=== PATIENT | female | born 1980 | race Caucasian/White ===

== ENCOUNTER 2023-10-20 11:09 | Emergency (ER) | payer OTHER, SELFPAY ==
[2023-10-20 11:15] VITALS: BP 116/75
[2023-10-20 12:04] VITALS: BMI 18.5
--- NOTE | 2023-10-20 13:06 | ED.GENMED ---
History of Present Illness
General
Chief Complaint: Skin Problem
Source: patient
Exam Limitations: none
Time Seen by Provider: 10/20/23 12:09
Nursing documentation reviewed up to this point in time: agreed with
Travel History
Have you had any contact with someone who has COVID-19?: No
Do you have any symptoms of coronavirus? Fever > 100 degrees, chills, cough, shortness of breath, sore throat, loss of taste or smell, muscle aches, or headache?: No
History of Present Illness
History of Present Illness:
Patient is a 41-year-old female who presents to the ER for evaluation. She initially started with abdominal pain October 10 in her left lower quadrant region. At that time she also started vaginal bleeding which was 9 days earlier then her
menses.
She then noticed a rash to her left leg October 12 She was seen by her primary care physician on October 15 and diagnosed with shingles. She was started on Valtrex and gabapentin. For evaluation of abdominal pain her family doctor did order a
pelvic ultrasound however she did not get it yet.
She reports the rash has been getting better and the pain has been getting better however today she noticed bruising to her left thigh.
She has still has had the left lower quad abd pain that is dull but persistent. She denies urinary frequency urgency or dysuria. She does have some left lower back pain with this as well. She denies any fever or chills.
Review of Systems
Review of Systems
Allergies reviewed?: Yes
All Other Systems: ROS reviewed and negative except as documented in HPI and ROS
Constitutional: Reports no symptoms; Denies fever, fatigue or chills
Respiratory: Reports no symptoms
Cardiac: Reports no symptoms
ABD/GI: Reports other (left lower abd pain ); Denies nausea, vomiting, diarrhea or constipated
: Reports no symptoms; Denies flank pain, urgency or discharge
Musculoskeletal: Reports no symptoms
Skin: Reports other (healing rash to left thigh/lower back , noticed bruising to left thigh today )
Neurological: Reports no symptoms
Hematologic/Lymphatic: Reports no symptoms
Psychiatric: Reports no symptoms
Phy Exam
General Physical Exam
General Presentation: no apparent distress
General age: appears stated age
General Skin: warm and dry
General Habitus: normal
General Mental: alert
General Hydration: appears well hydrated
Cardiovascular Exam
Cardiovascular Exam: regular rate/rhythm, no murmur and normal peripheral pulses
Pulmonary Exam
Pulmonary Exam: lungs clear and no respiratory distress
Gastrointestinal Exam
Gastrointestinal Exam: non tender and soft
Neurological Exam
Neurological Exam: alert and oriented x3
[place] Coma Scale
Eye Opening: Spontaneous
Verbal Response: Oriented
Motor Response: Obeys Commands
GCS Total Score: 15
Musculoskeletal Exam
Musculoskeletal Exam: full ROM and other (Healing zoster rash to left leg left lower back small ecchymosis to left thigh no swelling )
Course
Orders/Labs/Results
Orders:
Orders
10/20/23 13:06
IV Insert/Care/Rem.- Treatment PRN
0.9% Sodium Chloride 1000 ml [Nss] 1,000 ml IV BOLUS
10/20/23 13:07
Test Result ONCE
US Pelvis Only (non-obstetric) Urgent
Comment:
Reason For Exam: llq pain
10/20/23 13:12
Complete Blood Count/With Diff Urgent
Comprehensive Metabolic Panel Urgent
HCG, Serum Qualitative Screen Urgent
PTT Urgent
Prothrombin Time Urgent
10/20/23 14:16
Urinalysis Reflex To Culture Urgent
Date Specimen was Collected: 10/20/23
Time Specimen was Collected: 14:13
Abnormal Lab Results
10/20/23
13:12
MCH 31.3 H pg
(27.0-31.0)
10/20/23 13:12
10/20/23 13:12
Vital Signs
Initial and Last Documented VS:
Initial Vital Signs
Temp Pulse Resp BP Pulse Ox
98.7 F 87 17 116/75 100
10/20/23 11:15 10/20/23 11:15 10/20/23 11:15 10/20/23 11:15 10/20/23 11:15
Last Documented Vital Signs
Temp Pulse Resp BP Pulse Ox
98.7 F 87 17 116/75 100
10/20/23 11:15 10/20/23 11:15 10/20/23 11:15 10/20/23 11:15 10/20/23 11:15
MDM/Problems Addressed
Differential Diagnosis Includes:
Not limited to healing shingles rash, ecchymosis, questionable clotting abnormality, ovarian cyst, fibroid
MDM/Problems Addressed:
Patient diagnosed with shingles reports rash is getting better but there is some bruising to left thigh area what brought her here for evaluation. She also has had some lower abdominal discomfort and was seen by her family doctor she ordered an
ultrasound of her pelvis but she did not yet get that. Patient denies any fever chills. Patient presents awake alert no acute distress stable vitals afebrile normal white count stable normal hemoglobin and platelets. Rash appears to be improving
but does appear to be shingles rash there is very minimal amount of bruising/slight ecchymosis to left thigh. No swelling nontender. Normal PT/INR normal chemistries, normal urinalysis.
Ultrasound shows minimal free fluid in the pelvis otherwise normal.
Patient is nontoxic-appearing . d/c w/ DR Bob nothing urgent on ER workup. pt is very well appearing. will DC with outpt f/u by pcp
*Radiology
Radiology exam reviewed: radiology read reviewed
*Pulse Oximetry
Patient hypoxic: no
*Critical Care Note
Total Time (30-74mins, 75-104mins- exclusive of procedures): Not Applicable
ED Attending Note
-
Portions of this chart may have been created with voice recognition software.� Occasional wrong word or��sound alike� substitutions may have occurred due to the inherent limitations of voice recognition software.
Discharge Plan
Departure
Patient Disposition: Home (Routine Discharge)
Date of Disposition: 10/20/23
Time of Disposition: 16:51
Patient with high blood pressure during this ER visit?: No
Covid-19: Not Applicable
Discharge Problem:
Zoster, Ecchymosis
Instructions: Shingles (DC)
Prescriptions:
No Action
valacyclovir [Valtrex] 1 gram Tablet
1,000 mg PO TID
gabapentin 100 mg Capsule
100 mg PO TID
Referrals:
Dany Flowers DO [Family Provider] -
Activity Restrictions/Additional Instructions:
As discussed your lab work was unremarkable. Please follow-up with your family doctor for further evaluation of your symptoms. There is no acute findings on ultrasound please follow with your oncologist in the next several days. Return if any
worsening of symptoms
Interventions
Interventions:
*Risk Screen - Suicide Last Done: 10/20/23 12:07
*General Assessment Last Done: 10/20/23 12:07
*Neglect/Abuse Screening Last Done: 10/20/23 12:07
ED- Fall Risk Assessment Last Done: 10/20/23 12:09
*ED COVID-19 Vaccine History Last Done: 10/20/23 12:06
ED-Skin Assessment Last Done: 10/20/23 12:04
[2023-10-20] MEDS: NSS 1000 IV (13:14)
[2023-10-20 13:40] LABS: % Basophils 0.7 % (0-2); % Eosinophils 2.8 % (0-6); % Immature Granulocytes 0.4 % (0-0.5); % Monocytes 4.2 % (1.7-9.3); % Neutrophils 62.9 % (42.2-75.2); Absolute Basophils 0.1 10^3/uL (0-0.2); Absolute Eosinophils 0.2 10^3/uL (0-0.7); Absolute Lymphocytes 2.2 10^3/uL (1.2-3.4); Absolute Monocytes 0.3 10^3/uL (0.1-0.6); Absolute Neutrophils 4.8 10^3/uL (1.4-6.5); Hematocrit 37.8 % (37.0-47.0); Hemoglobin 13.5 g/dL (12.0-16.0); Mean Corp Hgb Conc. 35.7 g/dL (33.0-37.0); Mean Corpuscular Hgb 31.3 pg (27.0-31.0); Mean Corpuscular Volume 87.7 fL (81.0-99.0); Mean Platelet Volume 9.7 fL (7.4-10.4); Nucleated Red Blood Cells % 0 %; Platelet Count 270 10^3/uL (130-400); Red Blood Cell Count 4.31 10^6/uL (4.20-5.40); Red Cell Dist. Width 11.9 % (11.5-14.5); White Blood Cell Count 7.6 10^3/uL (4.8-10.8)
[2023-10-20 13:49] LABS: HCG, Serum Qualitative Screen Negative
[2023-10-20 13:51] LABS: ALT (SGPT) 16 U/L (0-35); AST (SGOT) 22 U/L (14-36); Alkaline Phosphatase 57 U/L (38-126); Blood Urea Nitrogen 7 mg/dl (7-17); Calcium 9.4 mg/dl (8.4-10.2); Carbon Dioxide 29 mmol/L (22-30); Chloride 102 mmol/L (98-107); Estimated Creatinine Clearance 103 ml/min; Glucose 77 mg/dl (70-99); Sodium 136 mmol/L (135-145); Total Bilirubin 0.6 mg/dl (0.2-1.3); Total Protein 8.2 g/dl (6.3-8.2); eGFR > 60.00
[2023-10-20 13:57] LABS: INR 0.95; PT 12.9 Sec (11.4-14.6)
[2023-10-20 13:58] LABS: APTT 33.1 Sec (23.4-35.0)
[2023-10-20 14:45] LABS: Urine Albumin Negative (Neg - Trace); Urine Bilirubin Negative (Negative); Urine Character Clear (Clear); Urine Color Yellow; Urine Glucose Negative (Negative); Urine Ketone Negative (Negative); Urine Leukocyte Negative (Negative); Urine Nitrite Negative (Negative); Urine Occult Blood Negative (Negative); Urine Specific Gravity 1.005 (<1.030); Urine Urobilinogen Negative (Neg - 1+); Urine pH 6.5 (5.0-9.0)
[2023-10-20 16:58] VITALS: BP 104/71
== END 2023-10-20 17:11 | disposition home or self-care (01) ==
LOC: EMR 11:09
PROVIDERS: Nurse Practitioner; EMERGENCY PHYSICIAN Emergency Medicine; FAMILY PHYSICIAN Family Medicine
DX: B02.9 Zoster without complications (principal); S70.12XA Contusion of left thigh, initial encounter; X58.XXXA Exposure to other specified factors, initial encounter
CPT/HCPCS: 99284; 96360; 76856; 80053; 81003; 84703; 85025; 85610; 85730